=== PATIENT | male | born 1955 ===

== ENCOUNTER 2020-11-13 09:55 | Emergency (ER) | payer OTHER ==
[2020-11-13 10:47] LABS: HEMATOCRIT 41.6 % (42.0-52.0); HEMOGLOBIN 14.5 g/dL (13.5-18.0); MEAN CELL VOLUME 92 fl (78-100); MEAN CORPUSCULAR HEMOGLOBIN 32 pg (27-31); MEAN CORPUSCULAR HGB CONC 35 g/dL (33-37); MEAN PLATELET VOLUME 10.9 fl (7.4-10.4); PLATELET COUNT 190 K/mm3 (130-400); RED CELL DISTRIBUTION WIDTH 11.7 % (11.5-14.5); WHITE BLOOD COUNT 7.6 K/mm3 (4.8-10.8)
[2020-11-13 10:58] LABS: ALBUMIN 2.8 g/dL (3.4-4.8)
[2020-11-13 11:00] LABS: CALCIUM 8.7 mg/dL (8.3-10.5)
[2020-11-13 11:01] LABS: TOTAL PROTEIN 6.6 g/dL (6.2-8.1)
[2020-11-13 11:03] LABS: TOTAL BILIRUBIN 2.6 mg/dL (0.2-1.2)
[2020-11-13 11:12] LABS: LYMPHOCYTE 7 % (20-51); MONOCYTE 14 % (3-10); NEUTROPHILS 79 % (42-75)
[2020-11-13 12:31] LABS: URINE APPEARANCE CLEAR; URINE BILIRUBIN NEGATIVE (NEGATIVE); URINE BLOOD TRACE (NEGATIVE); URINE COLOR DARK YELLOW; URINE GLUCOSE NEGATIVE (NEGATIVE); URINE KETONE 2+ (NEGATIVE); URINE LEUKOCYTE ESTERASE NEGATIVE (NEGATIVE); URINE NITRATE NEGATIVE (NEGATIVE); URINE PROTEIN(semi-quant) TRACE mg/dL (NEGATIVE); URINE UROBILINOGEN 8 mg/dL (NORMAL)
[2020-11-13] MEDS ORDERED: ZITHROMAX500 M2 PO (12:31)
[2020-11-13 12:32] LABS: URINE MUCUS PRESENT (NOT PRESENT)
[2020-11-13 12:49] VITALS: BP 130/81
== END 2020-11-13 13:15 | disposition home or self-care (01) ==
LOC: ED 09:55
PROVIDERS: Physician Assistant
DX: U07.1 COVID-19 (principal); J12.82 Pneumonia due to coronavirus disease 2019
CPT/HCPCS: J0696; J7030